=== PATIENT | female | born 1980 | race Caucasian/White ===

== ENCOUNTER → 2016-12-24 | Outpatient (REF) | LOC: ZLAB.WCH 09:03 | DX: Z01.89 Encounter for other specified special examinations (principal) ==

== ENCOUNTER → 2017-07-07 | Outpatient (CLI) | payer BC | LOC: MC.RAD 13:32 | DX: N60.02 Solitary cyst of left breast (principal) ==

== ENCOUNTER 2018-04-09 12:47 | Outpatient (RCR) | payer OTHER | END 2018-07-08 | disposition home or self-care (01) | LOC: WSOH | DX: S93.521A Sprain of metatarsophalangeal joint of right great toe, initial encounter (principal); S93.432A Sprain of tibiofibular ligament of left ankle, initial encounter; W00.0XXA Fall on same level due to ice and snow, initial encounter; Y93.01 Activity, walking, marching and hiking; Y92.481 Parking lot as the place of occurrence of the external cause; Y99.0 Civilian activity done for income or pay; Z87.891 Personal history of nicotine dependence; Z79.3 Long term (current) use of hormonal contraceptives ==

== ENCOUNTER → 2018-06-18 | Outpatient (CLI) | payer BC | LOC: MC.RAD 16:15 | DX: Z12.31 Encounter for screening mammogram for malignant neoplasm of breast (principal) ==

== ENCOUNTER → 2020-08-09 | Outpatient (CLI) | payer OTHER | LOC: MC.RAD 13:45 | DX: Z12.31 Encounter for screening mammogram for malignant neoplasm of breast (principal) ==

== ENCOUNTER → 2021-06-05 | Outpatient (CLI) | payer OTHER | LOC: MC.RAD 13:43 | DX: N64.4 Mastodynia (principal) ==

== ENCOUNTER → 2021-11-08 | Outpatient (CLI) | payer OTHER | LOC: MC.RAD 09:10 | DX: Z12.31 Encounter for screening mammogram for malignant neoplasm of breast (principal); N64.4 Mastodynia ==